=== PATIENT | male | born 1955 | race Caucasian/White ===

== ENCOUNTER 2017-03-25 16:15 | Inpatient (IN) | payer BC ==
[~2017-03-25] VITALS: Ht 182.9 cm; Wt 93.9 kg
--- NOTE | ~2017-03-25 | EKG ---
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 : 1955 Requested By: Glen Rios Order Number: [id number] MD: Valdez Manzanares Measurements Intervals [place] Rate: 56 P: 39 MO: 170 QRS: -5 QRSD: 108 T: 21 QT: 447 QTc: 432 Interpretive Statements Sinus rhythm Inferior infarct, recent (LCx) Lateral leads are also involved Compared to ECG 03/25/2017 16:14:08 Sinus bradycardia no longer present Inferior and lateral injury pattern less prominent Electronically Signed On 03-26-2017 7:36:45 CDT by Valdez Manzanares [email or web address] <ELECTRONICALLY SIGNED> By: Valdez Manzanares MD, [facility] 03/26/17 0736 192 28 Valdez Manzanares MD, [facility] /EPI
--- NOTE | ~2017-03-25 | EKG ---
[place] [address] [facility] [place] [address] ELECTROCARDIOGRAM REPORT Name: SEKOU DENTON Room #: 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: CARMEN : 1955 Requested By: Shellie Agudelo Order Number: [id number] MD: Valdez Manzanares Measurements Intervals [place] Rate: 56 P: 32 MA: 175 QRS: 5 QRSD: 97 T: 83 QT: 434 QTc: 419 Interpretive Statements Sinus bradycardia Probable left ventricular hypertrophy Inferoposterior infarct, acute (LCx) Lateral leads are also involved Compared to ECG 01/05/2016 07:17:09 Myocardial infarct finding now present Electronically Signed On 03-25-2017 17:22:49 CDT by Valdez Manzanares [email or web address] <ELECTRONICALLY SIGNED> By: Valdez Manzanares MD, [facility] 03/25/17 1722 1614 1614 Valdez Manzanares MD, [facility] /EPI
--- NOTE | ~2017-03-25 | H ---
[facility] [place] [address] HISTORY AND PHYSICAL Name: SEKOU DENTON Room #: 214-P ADM IN M.R.#: [id number] Admission: 03/25/17 Attend Phys: Glen Rios MD Discharge: Date of : 57 Report #: [id number] THIS REPORT FOR: //name// CC: [facility] physician/PCP Shellie Agudelo DATE OF SERVICE: 03/25/2017 INDICATION: Chest pain. HISTORY OF PRESENT ILLNESS: This is a 61-year-old gentleman presenting with acute onset of left-sided chest pain. He had workout earlier today. On the way home, he developed a discomfort on the left side of his chest. He has some diaphoresis, on and off. He just did not feel well and discomfort persisted. The EKG performed on the field revealed ST elevation in the inferior leads. He offers no complaints of fever, chills, nausea or diarrhea. PAST MEDICAL HISTORY: Initial inferior wall AK in 2008 with stent placement. Since then, he has had subsequent angioplasties was performed. In 08/2015, he was found to have restenotic lesions in the RCA, undergoing placement of drug-eluting stents. In 12/2015, he underwent placement of a drug-eluting stent into the mid circumflex/ostial obtuse marginal artery. History of hypertension. History of hypercholesterolemia. Intolerance to a beta-ryan. ALLERGIES: INCLUDE BETA RYAN. MEDICATIONS: Include aspirin 325 daily, Lipitor 80 mg daily, losartan 50 mg daily, inhalers. SOCIAL HISTORY: Denies tobacco use. FAMILY HISTORY: Negative for premature CAD. REVIEW OF SYSTEMS: Only the pertinent positives and negatives are described in the HPI. PHYSICAL EXAMINATION: VITAL SIGNS: Blood pressure is 150/70, heart rate is 56 beats per minute. GENERAL APPEARANCE: He is a well-developed, well-nourished male in no acute respiratory distress. HEAD AND EYES: Normocephalic. Sclerae are anicteric. ENT: Oral mucosa moist. NECK: Supple. LUNGS: Clear to auscultation. CARDIAC: Regular rate and rhythm, S1, S2 positive. ABDOMEN: Soft, nontender. Bowel sounds positive. [facility] [address] [place] [address] HISTORY AND PHYSICAL Name: SEKOU DENTON Room #: 214-P [facility] IN .R.#: [id number] Admission: 03/25/17 Attend Phys: Glen Rios MD Discharge: Date of : 57 Report #: [id number] EXTREMITIES: No cyanosis, no edema. ELECTROCARDIOGRAM: Reveals sinus rhythm with ST elevation in the inferior leads and V6 with reciprocal ST depressions in the high lateral leads. LABORATORY VALUES: Pending. ASSESSMENT AND PLAN: 1. Acute inferolateral myocardial infarction. We will proceed with emergent cardiac catheterization. Further recommendations will follow the results of his cardiac catheterization. 2. Hypertension, continue with losartan. 3. Hypercholesterolemia, continue with Lipitor. Check a lipid panel. 4. Intolerance to beta blockers. <ELECTRONICALLY SIGNED> By: Glen Rios MD 03/27/17 0815 1630 1647 Glen Rios MD /nt
--- NOTE | ~2017-03-25 | 2DMMODE ---
[facility] [address] [place] [address] 2 D/M-MODE ECHOCARDIOGRAM Name: CORRIESEKOU Room #: 214-P [facility] IN ..#: [id number] Admission: 03/25/17 Attend Phys: Glen Rios MD Discharge: Date of : 57 Date of Service: 03/26/17 1351 Report #: [id number] THIS REPORT FOR: //name// APPROVED REPORT Study performed: 03/26/2017 09:52:07 EXAM: Comprehensive 2D, Doppler, and color-flow Echocardiogram Patient Location: Bedside Room #: 214 Status: routine BSA: 2.19 HR: 62 bpm BP: 126/86 mmHg Other Information Study Quality: Good Indications CAD Chest Pain Hypertension/HDD HLP, STEMI 2D Dimensions RVDd: 41.74 mm LVEF(%): 51.48 (>50%) IVSd: 10.17 (7-11mm) LVOT Diam: 19.59 (18-24mm) LVDd: 49.63 mm PWd: 10.62 (7-11mm) Ascending Ao: 34.26 (22-36mm) LVDs: 36.53 (25-40mm) Aortic Root: 34.13 mm IVC: 24.00 mm Polanco's LVEF: 51.48 % Volumes Left Atrial Volume (Systole) Single Plane 4CH: 46.24 mL Single Plane 2CH: 43.76 mL LA ESV Index: 22.00 mL/m2 Aortic Valve AoV Peak Chas.: 1.10 m/s AO Peak Gr.: 4.88 mmHg LVOT Max P.79 mmHg LVOT Max V: 0.97 m/s CHRISTINE Vmax: 2.66 cm2 Mitral Valve [facility] [address] [address] 2 D/M-MODE ECHOCARDIOGRAM Name: CORRIESEKOU Valerio Room #: 214-P [facility] IN ..#: [id number] Admission: 03/25/17 Attend Phys: Glen Rios MD Discharge: Date of : 57 Date of Service: 03/26/17 1351 Report #: [id number] E/A Ratio: 0.6 MV Decel. Time: 222.56 ms MV E Max Chas.: 0.60 m/s MV A Chas.: 0.93 m/s MV PHT: 64.54 ms IVRT: 147.64 ms Pulmonary Valve PV Peak Chas.: 0.88 m/s PV Peak Gr.: 3.12 mmHg Pulmonary Vein P Vein S: 0.65 m/s P Vein A: 0.38 m/s P Vein D: 0.31 m/s P Vein A Dur.: 124.6 msec P Vein S/D Ratio: 2.10 Tricuspid Valve TR Peak Chas.: 2.28 m/s TR Peak Gr.: 20.85 mmHg PA Pressure: 31.00 mmHg Left Ventricle The left ventricle is normal size. There is hypokinesis in the inferior wall. There is normal left ventricular wall thickness. Left ventricular systolic function is mildly decreased. LVEF is 45%. Grade I - abnormal relaxation pattern. Right Ventricle Right ventricle is at the upper limits of normal. The right ventricular systolic function is normal. Atria The left atrium size is normal. Right atrium is at the upper limits of normal. Aortic Valve The aortic valve is normal in structure. No aortic regurgitation is present. There is no aortic valvular stenosis. Mitral Valve The mitral valve is normal in structure. Mild mitral regurgitation. No evidence of mitral valve stenosis. Tricuspid Valve The tricuspid valve is normal in structure. There is no tricuspid valve stenosis. There is trace tricuspid regurgitation. The right atrial pressure is estimated at mmHg. There is no pulmonary [facility] [address] [place] [address] 2 D/M-MODE ECHOCARDIOGRAM Name: SEKOU DENTON Room #: 214-P [facility] IN .#: [id number] Admission: 03/25/17 Attend Phys: Glen Rios MD Discharge: Date of : 57 Date of Service: 03/26/17 1351 Report #: [id number] hypertension. Pulmonic Valve The pulmonary valve is normal in structure. Trace pulmonic regurgitation. Great Vessels The aortic root is normal in size. IVC is dilated and collapses >50% with inspiration. Pericardium There is no pericardial effusion. <Conclusion> The left ventricle is normal size. Left ventricular systolic function is lower limits of normal. Left ventricular systolic function is mildly decreased. Grade I - abnormal relaxation pattern. There is hypokinesis in the inferior wall. The left atrium size is normal. The aortic valve is normal in structure. Mild mitral regurgitation. There is no pericardial effusion. <ELECTRONICALLY SIGNED> By: Glen Rios MD 03/26/17 1351 135 135 Glen Rios MD /INF
--- NOTE | ~2017-03-25 | EKG ---
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 : 1955 Requested By: Colleen Bingham Order Number: [id number] MD: Valdez Manzanares Measurements Intervals [place] Rate: 59 P: 6 GA: 158 QRS: -37 QRSD: 100 T: -44 QT: 486 QTc: 482 Interpretive Statements Sinus rhythm Left ventricular hypertrophy Inferior infarct, recent Lateral leads are also involved Baseline wander in lead(s) V2 Compared to ECG 03/26/2017 06:17:[address] and T wave abnormality is more pronounced Electronically Signed On 03-27-2017 7:47:11 CDT by Valdez Manzanares [email or web address] <ELECTRONICALLY SIGNED> By: Valdez Manzanares MD, [facility] 03/27/17 0747 0613 2 Valdez Manzanares MD, [facility] /EPI
--- NOTE | ~2017-03-25 | EKG ---
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 : 1955 Requested By: Glen Rios Order Number: [id number] MD: Valdez Manzanares Measurements Intervals [place] Rate: 56 P: 2 MS: 173 QRS: -34 QRSD: 99 T: -24 QT: 450 QTc: 435 Interpretive Statements Sinus rhythm Left ventricular hypertrophy Inferior infarct, recent Baseline wander in lead(s) V6 Compared to ECG 03/25/2017 16:14:08 Inferior and lateral injury pattern is no longer present Electronically Signed On 03-26-2017 7:42:33 CDT by Valdez Manzanares [email or web address] <ELECTRONICALLY SIGNED> By: Valdez Manzanares MD, [facility] 03/26/17 0742 06 6 Valdez Manzanares MD, [facility] /EPI
--- NOTE | ~2017-03-25 | CATHLAB ---
[place] [address] [place] [address] INVASIVE PROCEDURE REPORT Name: SEKOU DENTON Room #: 214-P [facility] IN [facility].#: [id number] Admission: 03/25/17 Attend Phys: Glen Rios MD Discharge: Date of : 57 Date of Service: 03/25/171819 Report #: [id number] THIS REPORT FOR: //name// APPROVED REPORT Patient Details Patient Status: ED Room #: The patient is a 61 year-old male Event Personnel Glen Rios Physics Technical Officer, Gloria Harper Monitor, Rogers Luke RN, Armando Ryder Vansandt, Kristi RTR Monitor Procedures Performed BOB Revasc AMI Total/Sub Single RCA C9606 AMIREVSING Indication STEMI , Chest pain Risk Factors Hypercholesterolemia, Coronary Artery DiseaseHypertension Previous Procedures/Diagnoses Previous PCI, Previous MA Procedure Narrative The Right Groin^ was infiltrated with 1% Lidocaine subcutaneous anesthesia. A PINNACLE 6FR Sheath #[id number] sheath was inserted into the RFA^. Coronary angiography was performed using coronary diagnostic catheters. The right coronary system was accessed and visualized with a JR4 GUIDE catheter. The left coronary system was accessed and visualized with a JL4 catheter. Closure device was deployed with a 6 Fr MYNXGRIP 6/7F #[id number]. The patient tolerated the procedure well and there were no complications associated with the procedure. Intraoperative Conscious Sedation Sedation start time: 16:44 Case end Time: 17:42 Fentanyl 50.0 mcg Versed 1.0 mg Fluoro Time: 17.40 minutes Dose: 2006.26 mGy [address] [place] [address] INVASIVE PROCEDURE REPORT Name: CORRIESEKOU Room #: 214-P [facility] IN [facility]#: [id number] Admission: 03/25/17 Attend Phys: Glen Rios MD Discharge: Date of : 57 Date of Service: 03/25/17 1820 Report #: [id number] Contrast Type and Amount: Visipaque 185 ml Coronary Angiography The patient's coronary anatomy is right dominant. Diagnostic Cath Left Main Moderate to large size caliber vessel, with no flow-limiting lesions. LAD Moderate size caliber vessel, traveling down the anterior wall and wrapping around the apex. There is mild disease in the proximal and mid segments, 20%. Diagonal 1 Mild disease in the proximal segment. Circumflex Moderate size caliber vessel with mild disease in the proximal segment, 20%. There is a patent stent in the midsegment of the left circumflex artery, extending into the ostium of the obtuse marginal artery. Right Coronary The RCA is a dominant vessel with multiple overlapping stents in the proximal segment down to the distal segment. There is a total occlusion within the mid/distal segment of the RCA. Left Ventriculography Left Ventriculography was not performed. Hemodynamics The aortic pressure is 140/78 mmHg with a mean of 108 mmHg. PCI Technique Lesion Anticoagulation was achieved with Angiomax. Percutaneous coronary intervention was performed on the mistal right coronary artery. A VISTA 6FR JR 4 #[id number] Guide Catheter was used to engage the ostium. A Luge Wire .014 x 182CM #[id number] Interventional Guidewire was used to cross the lesion. BALLOON DILATION A Balloon catheter Euphora RX 2.5 x 12 #[id number] was inserted and inflated up to rico for seconds. Additional Inflation: 12.00atm for 8seconds. Additional Inflation: 12.00atm for 14seconds. STENT DEPLOYMENT A drug-eluting stent RESOLUTE RX 2.75 X 18 #[id number] was inserted and inflated up to 12.00atm for 17seconds. There was difficulty in delivering the stent to the distal segment, a guideliner support catheter was used to facilitate passage of the stent within the mid segment area to the distal location. [facility] [address] [place] [address] INVASIVE PROCEDURE REPORT Name: ARLETLUIS FSEKOU BLAS Room #: 214-P [facility]..#: [id number] Admission: 03/25/17 Attend Phys: Glen Rios MD Discharge: Date of : 57 Date of Service: 03/25/17 182 Report #: [id number] STENT DEPLOYMENT BALLOON DILATION A Balloon catheter [employer] [place] RX 3.0 x 12 #[id number] was inserted and inflated up to 18.00atm for 21seconds. Additional Inflation: 18.00atm for 19seconds. Additional Inflation: 18.00atm for 21seconds. Final angiography reveals 0 % stenosis with ARMEN 3 flow. Conclusion 1. Successful insertion of a drug-eluting stent into the distal RCA. Postdilated with a 3.0 mm noncompliant balloon. 2. Recommend dual antiplatelet therapy. 3. Recommend aggressive risk factor management. Recommendations Aggressive Medical Therapy <ELECTRONICALLY SIGNED> By: Glen Rios MD 03/25/171819 19 19 Glen Rios MD /INF
--- NOTE | ~2017-03-25 | D ---
[facility] [place] [address] DISCHARGE SUMMARY Name: SEKOU DENTON Room #: 214-P [facility] IN M.R.#: [id number] Admission: 03/25/17 Attend Phys: Glen Rios MD Discharge: 03/27/17 Date of : 57 Report #: [id number] THIS REPORT FOR: //name// CC: [facility] physician/PCP Glen Rios DATE OF SERVICE: 03/27/2017 FINAL DIAGNOSES: 1. Acute inferior wall myocardial infarction, status post coronary angioplasty. 2. Prior history of coronary artery disease and myocardial infarction. 3. Hypertension. 4. Hypercholesterolemia. HOSPITAL COURSE: Please see the original H and P for full details. The patient presented with an acute inferior wall MS. Please see the cardiac catheterization report for full details. He was found to have a total occlusion in the mid/distal segment of the RCA. He has a prior history of coronary stents to the RCA. Angioplasty was performed with placement of a drug-eluting stent. The final result with ARMEN 3 blood flow. He remained stable on telemetry. He did have some reperfusion arrhythmias. An echo revealed mild segmental LV dysfunction. He is tolerating the combination of aspirin and Brilinta. He is given strict instructions to continue with both medications. He has a history of intolerance to METOPROLOL. He is tolerating a low dose of Bystolic at this time. He was given instructions for discharge and will follow up in the office. FINAL DISPOSITION: Brilinta 90 mg twice a day, aspirin 81 mg daily, Bystolic 2.5 mg daily, losartan 50 mg daily and Lipitor 80 mg daily. <ELECTRONICALLY SIGNED> By: Glen Rios MD 03/28/17 1125 0825 1541 Glen Rios MD /nt
[~2017-03-25 16:15] MED LIST: ALLEGRA ALLERG180 MG PO; ASPIRIN325 PO; COZAAR 50 MG TA50 M2 PO; EFFIENT10 MG PO; FISH OIL 1,001000 M2 PO; FLONASE 0.05%50 MCG NASAL; LIPITOR40 MG PO; SINGULAIR 10 MG10 M1 PO
[2017-03-25 16:33] VITALS: BP 136/75
[2017-03-25 16:33] LABS: ABSOLUTE NEUTROPHILS 7.9 thou/uL (1.4-8.2); BASOPHILS 0.6 % (0.0-2.0); EOSINOPHILS 1.5 % (0.0-3.0); HEMATOCRIT 41.4 % (42.0-52.0); LYMPHOCYTES 15.3 % (24.0-44.0); MCH 30.1 pg (26.0-34.0); MCHC 33.8 g/dL (28.0-37.0); MCV 89.1 fL (80.0-100.0); MONOCYTES 8.7 % (1.0-8.0); PLATELET COUNT 252 thou/uL (150-400); POLYS 73.9 % (36.0-66.0); RBC 4.64 mil/uL (4.50-6.00); RDW 14.1 % (10.5-14.5); WBC 10.7 thou/uL (4.0-11.0)
[2017-03-25 16:41] LABS: MANUAL DIFF NO
[2017-03-25 16:43] LABS: CALCIUM 8.7 mg/dL (8.5-10.1); CREATININE 0.9 mg/dL (0.7-1.3); POTASSIUM 4.5 mmol/L (3.5-5.1)
[2017-03-25 16:51] LABS: TROPONIN-I 0.13 ng/mL (<0.04-0.07)
[2017-03-25 17:22] LABS: APTT 24.9 Seconds (24.5-32.8); INR 1.1
[2017-03-25 18:43] VITALS: BP 104/52
[2017-03-25 19:55] VITALS: BP 135/73
[2017-03-25 20:30] VITALS: BP 135/82
[2017-03-25 22:21] VITALS: BP 144/68
[2017-03-26 00:12] VITALS: BP 121/81
[2017-03-26 04:17] LABS: HEMATOCRIT 40.4 % (42.0-52.0); HEMOGLOBIN 13.7 gm/dL (14.0-18.0); MCH 30.3 pg (26.0-34.0); MCV 89.1 fL (80.0-100.0); RBC 4.53 mil/uL (4.50-6.00); RDW 13.9 % (10.5-14.5); WBC 8.9 thou/uL (4.0-11.0)
[2017-03-26 04:28] LABS: CALCIUM 8.6 mg/dL (8.5-10.1); CREATININE 0.8 mg/dL (0.7-1.3); POTASSIUM 4.6 mmol/L (3.5-5.1)
[2017-03-26 04:35] VITALS: BP 117/69
[2017-03-26 05:09] LABS: TROPONIN-I 39.8 ng/mL (<0.04-0.07)
[2017-03-26 07:59] VITALS: BP 126/86
[2017-03-26 08:00] VITALS: BP 136/89
[2017-03-26 11:30] VITALS: BP 136/89
[2017-03-26 19:29] VITALS: BP 114/72
[2017-03-27 03:42] VITALS: BP 107/57
[2017-03-27 07:50] VITALS: BP 120/83
[2017-03-27] MEDS ORDERED: BRILINTA90 MG PO (08:17)
[2017-03-27] MEDS ORDERED: BYSTOLIC2.5 MG PO (08:18)
[2017-03-27] MEDS ORDERED: ASPIR 8181 MG PO (08:18)
[2017-03-27 10:03] VITALS: BP 120/83
[2017-03-27 16:26] VITALS: BP 120/83
== END 2017-03-27 10:34 | disposition home or self-care (01) | DRG 247 ==
LOC: ER 16:15 → 2N 16:45 → ER 16:45 → 2N 17:55 → EROBS 17:55 → 2N 17:59
PROVIDERS: Emergency Medicine; Internal Medicine Cardiovascular Disease
DX: I21.19 ST elevation (STEMI) myocardial infarction involving other coronary artery of inferior wall (principal); I47.1 Supraventricular tachycardia; E78.00 Pure hypercholesterolemia, unspecified; I10 Essential (primary) hypertension; I25.10 Atherosclerotic heart disease of native coronary artery without angina pectoris; Z95.5 Presence of coronary angioplasty implant and graft; I25.2 Old myocardial infarction; Z28.21 Immunization not carried out because of patient refusal; Z79.82 Long term (current) use of aspirin; Z79.899 Other long term (current) drug therapy; Z88.8 Allergy status to other drugs, medicaments and biological substances
CPT/HCPCS: 10081